=== PATIENT | female | born 1995 | race Caucasian/White ===

== ENCOUNTER 2021-04-22 12:02 | Emergency (ER) | payer OTHER ==
[2021-04-22] MEDS ORDERED: ONDANSETRON ODT 4 MG ONE (12:11)
[2021-04-22] MEDS ORDERED: ACETAMINOPHEN 500 MG TABLET ONE (12:12)
--- NOTE | 2021-04-22 12:19 | NUR ---
ATTEMPT TO CALL PT FROM LOBBY TO TRIAGE. PT NIL X 1
--- NOTE | 2021-04-22 12:30 | NUR ---
ATTEMPT TO CALL PT FROM LOBBY TO TRIAGE. PT NIL X 2
--- NOTE | 2021-04-22 12:38 | NUR ---
ATTEMPT TO CALL PT FROM LOBBY TO TRIAGE X 3. PT NIL.
[2021-04-22] MEDS ORDERED: ASPIRIN 325 MG TABLET ONE (12:41)
== END 2021-04-22 12:45 | disposition left against medical advice (07) ==
LOC: ED 12:35
DX: R06.02 Shortness of breath (principal); Z53.21 Procedure and treatment not carried out due to patient leaving prior to being seen by health care provider